=== PATIENT | female | born 1965 ===

== ENCOUNTER 2023-09-28 15:59 | Inpatient (IN) | payer OTHER, SELFPAY ==
[2023-09-28 18:05] VITALS: BMI 29.9
[2023-09-28] MEDS ORDERED: Senokot S 8.6-50 MG TAB PO PRN (19:02)
[2023-09-28] MEDS ORDERED: Guaifenesin DM 100-10/5 ML UDCUP PO PRN (19:02)
[2023-09-28] MEDS ORDERED: Ondansetron PF 4 MG/2 ML Vial IVP PRN (19:02)
[2023-09-28] MEDS ORDERED: Acetaminophen 325 MG TAB PO PRN (19:02)
[2023-09-28] MEDS ORDERED: Dextrose 5% in Water 1,000 ML IV PRN (19:07)
[2023-09-28] MEDS ORDERED: Glucagon 1 MG/ML KIT IM PRN (19:07)
[2023-09-28] MEDS ORDERED: Dextrose 50% Abboject 50 ML SYRINGE SLOW IVP PRN (19:07)
[2023-09-28 19:52] LABS: Actual Bicarbonate (HCO3v) 21.4 mEq/L (22-28); Analyzer IN Cardio CS ER; Base Excess -3.2 mEq/L (-2 - +2); Calcium, Ionized (venous) 1.13 mmol/L (1.16-1.32); Chloride (VBG) 104 mmol/L (98-106); Hematocrit-VBG 46 % (36.0-47.0); Hemoglobin (Hb) 15.7 g/dL (11.7-16.0); Potassium (VBG) 3.41 mmol/L (3.70-5.30); Puncture Site Other Site; RapidComm Collect By lab; Sodium 140 mmol/L (133-146); pH (venous) 7.377 (7.32-7.43)
[2023-09-28 19:59] LABS: INR-International Normal Ratio 1.1; PTT 25.8 sec (22.0-33.0); Prothrombin Time 11.6 sec (9.5-12.1)
[2023-09-28 20:09] LABS: ALT (SGPT) 31 U/L (8-55); AST (SGOT) 26 U/L (5-34); Albumin 3.4 g/dL (3.5-5.0); Alkaline Phosphatase 105 U/L (40-110); Anion Gap 12 mmol/L (10-20); BUN (Urea Nitrogen) 10 mg/dL (9.8-20.1); Bilirubin, Total 0.9 mg/dL (0.2-1.2); Calc. Creatinine Clearance 86 mL/min (70-130); Calcium 9.2 mg/dL (7.8-10.44); Carbon Dioxide 23 mmol/L (22-29); Chloride 107 mmol/L (98-107); Estimated GFR 76; Globulin 3.3 g/dL (2.4-3.5); Glucose 179 mg/dL (70-105); Magnesium 1.6 mg/dL (1.6-2.6); Potassium 3.4 mmol/L (3.5-5.1); Protein, Total 6.7 g/dL (6.0-8.3); Sodium 139 mmol/L (136-145)
[2023-09-28] MEDS: Insulin Lispro 100 UNIT/ML 10 ML VIAL SC PRN (22:20)
[2023-09-28] MEDS: Magnesium 2 GM/50 ML(in water) 2 GM in Premix 1 BAG IVPB SCH (22:25)
[2023-09-28] MEDS: Aspirin 81 mg Enteric Coated Tablet PO SCH (22:26)
[2023-09-28] MEDS: Lactated Ringer's 1,000 ML IV SCH (22:26)
[2023-09-28] MEDS: Thiamine HCl 200 MG/2 ML VIAL SLOW IVP SCH (22:26)
[2023-09-28] MEDS: Potassium Chloride 20 MEQ TAB PO SCH (22:27)
[2023-09-28] MEDS: Famotidine 20 MG TAB PO SCH (22:27)
[2023-09-28] MEDS: Atorvastatin Calcium 40 MG TAB PO SCH (22:27)
[2023-09-28] MEDS: Labetalol HCl 100 MG TAB PO SCH (22:27)
[2023-09-29 05:05] LABS: Anion Gap 16 mmol/L (10-20); BUN (Urea Nitrogen) 10 mg/dL (9.8-20.1); Calc. Creatinine Clearance 85 mL/min (70-130); Calcium 9.1 mg/dL (7.8-10.44); Carbon Dioxide 19 mmol/L (22-29); Cardiac Risk 7.2 (Less than 4.5); Chloride 110 mmol/L (98-107); Cholesterol 152 mg/dl (< 200 Desired); Estimated GFR 75; Glucose 193 mg/dL (70-105); HDL Cholesterol 21 mg/dL (>60 Neg Risk); LDL Cholesterol, Calculated 104 mg/dL; Potassium 4.6 mmol/L (3.5-5.1); Sodium 140 mmol/L (136-145); Triglycerides 133 mg/dL (Less than 150)
[2023-09-29 05:25] LABS: Bilirubin Neg (Negative); Blood, Urine Negative (Negative); Clarity Clear (Clear); Glucose, Urine (Dipstick) 100 mg/dL (Negative); Ketone, Urine Negative (Negative); Leukocyte 100 (Negative); Nitrite Negative (Negative); Protein, Urine (Dipstick) 15 mg/dl (Neg-Trace); Urobilinogen Normal mg/dL (Less than 2)
[2023-09-29 05:31] LABS: Amphetamine Detected (NotDetected); Barbiturates Screen Not Detected (NotDetected); Benzodiazepine Screen Not Detected (NotDetected); Cocaine Metabolite Screen Not Detected (NotDetected); Methadone Not Detected (NotDetected); Methamphetamine Detected (NotDetected); Opiate Screen Not Detected (NotDetected); Oxycodone Screen Not Detected (NotDetected); Phencyclidine (PCP) Not Detected (NotDetected); THC/Cannabinoid Screen Detected (NotDetected); Tricyclic Screen Not Detected (NotDetected)
[2023-09-29 05:43] LABS: Legionella Urinary Ag Negative (Negative); Strep pneumo Urine Ag NEGATIVE (NEGATIVE)
[2023-09-29 05:46] LABS: RBC/HPF None Seen HPF (0-3); WBC/HPF 0-3 HPF (0-3)
[2023-09-29 05:47] LABS: Bacteria/HPF 2+ HPF (None Seen); Squamous Epithelial 0-3 HPF (0-3)
[2023-09-29 05:54] LABS: Influenza A by NAA Not Detected (NotDetected); Influenza B by NAA Not Detected (NotDetected); RSV by NAA Not Detected (NotDetected); SARS-CoV-2 NAA Rapid Test Not Detected (NotDetected)
[2023-09-29] MEDS: cefTRIAXone\\ROCEPHIN 1 GM in Sodium Chloride 0.9% 100 ML IVPB SCH (06:57)
[2023-09-29] MEDS ORDERED: Losartan 50 MG TAB PO SCH (09:00)
[2023-09-29] MEDS ORDERED: Losartan 25 MG TAB PO SCH (09:00)
[2023-09-29] MEDS ORDERED: Amlodipine 5 MG TAB PO SCH (09:00)
[2023-09-29] MEDS: Enoxaparin 40 MG (0.4 mL) SYRINGE SC SCH (09:48)
[2023-09-29] MEDS: Aspirin 81 mg Enteric Coated Tablet PO SCH (09:48)
[2023-09-29] MEDS: metFORMIN 500 MG TAB PO SCH (09:49)
[2023-09-29] MEDS: Thiamine HCl 500 MG, Admixture Fee 1 EACH in Sodium Chloride 0.9% 50 ML IVPB SCH (15:19)
[2023-09-29 15:34] LABS: Hemoglobin A1c 9.7 % (4.0-6.0)
[2023-09-29] MEDS: hydrALAZINE 20 MG/ML VIAL SLOW IVP PRN (21:53)
[2023-09-30] MEDS ORDERED: Electrolyte Replacement Protocol 1 EACH FS SCH (11:45)
[2023-09-30] MEDS: Spironolactone 25 MG TAB PO SCH (12:30)
[2023-09-30] MEDS: Carvedilol 3.125 MG TAB PO SCH (16:51)
[2023-09-30] MEDS: metFORMIN 500 MG TAB PO SCH (16:51)
[2023-10-01 05:41] LABS: Phosphorus 3.7 mg/dL (2.3-4.7)
[2023-10-01 05:42] LABS: Anion Gap 14 mmol/L (10-20); BUN (Urea Nitrogen) 12 mg/dL (9.8-20.1); Calc. Creatinine Clearance 76 mL/min (70-130); Calcium 9.8 mg/dL (7.8-10.44); Carbon Dioxide 23 mmol/L (22-29); Chloride 107 mmol/L (98-107); Estimated GFR 66; Glucose 148 mg/dL (70-105); Magnesium 1.7 mg/dL (1.6-2.6); Potassium 4.5 mmol/L (3.5-5.1); Sodium 139 mmol/L (136-145)
[2023-10-01] MEDS: Spironolactone 25 MG TAB PO SCH (08:59)
[2023-10-01] MEDS: Magnesium 2 GM/50 ML(in water) 2 GM in Premix 1 BAG IVPB SCH (09:00)
[2023-10-01] MEDS: Lorazepam 0.5 MG TAB PO PRN (16:05)
[2023-10-01] MEDS: Cyanocobalamin (Vitamin B-12) 1,000 MCG TAB PO SCH (21:02)
[2023-10-01] MEDS: Multivit, Therapeutic 1 TAB PO SCH (21:02)
[2023-10-01] MEDS: Folic Acid 1 MG TAB PO SCH (21:02)
[2023-10-02 05:57] LABS: Magnesium 1.9 mg/dL (1.6-2.6)
[2023-10-02] MEDS ORDERED: Magnesium 2 GM/50 ML(in water) 2 GM in Premix 1 BAG IVPB SCH (08:15)
[2023-10-02] MEDS: Magnesium 2 GM/50 ML(in water) 2 GM in Premix 1 BAG IVPB SCH (09:27)
[2023-10-02] MEDS: Thiamine HCl 250 MG, Admixture Fee 1 EACH in Sodium Chloride 0.9% 50 ML IVPB SCH (09:29)
[2023-10-02] MEDS: Calcium Carbonate 500 MG ChewTAB PO PRN (16:25)
[2023-10-02] MEDS: Nicotine 14 MG PATCH TD PRN (18:34)
[2023-10-03] MEDS: Lorazepam 0.5 MG TAB PO PRN (11:56)
[2023-10-03] MEDS: Nicotine 21 MG PATCH TD PRN (13:36)
[2023-10-03] MEDS: QUEtiapine 25 MG TAB PO SCH (13:59)
[2023-10-04] MEDS: QUEtiapine 25 MG TAB PO SCH (02:09)
[2023-10-04 04:34] LABS: #Basophils 0.08 10x3/uL (0.0-0.2); #Monocytes 0.86 10x3/uL (0.0-1.1); #Neutrophils 3.83 10x3/uL (1.5-8.4); %Eosinophils 2.5 % (0.0-6.0); %Lymphocytes 37.2 % (18.0-47.0); %Monocytes 10.7 % (0.0-10.0); %Neutrophils 47.9 % (40.0-75.0); Hematocrit 42.8 % (34.9-44.5); Hemoglobin 14.8 g/dL (12.0-15.5); Mean Corpuscular HGB CONC 34.6 g/dL (32.0-36.0); Mean Corpuscular Hemoglobin 30.6 pg (27.0-33.0); Mean Corpuscular Volume 88.6 fL (81.6-98.3); Platelet Count 209 10x3/uL (150-450); RBC Distribution Width 12.9 % (11.5-14.5); Red Blood Cell (RBC) Count 4.83 10x6/uL (3.90-5.03)
[2023-10-04 04:49] LABS: Anion Gap 14 mmol/L (10-20); BUN (Urea Nitrogen) 28 mg/dL (9.8-20.1); Calc. Creatinine Clearance 64 mL/min (70-130); Calcium 9.7 mg/dL (7.8-10.44); Carbon Dioxide 22 mmol/L (22-29); Chloride 106 mmol/L (98-107); Estimated GFR 53; Glucose 119 mg/dL (70-105); Potassium 4.6 mmol/L (3.5-5.1); Sodium 137 mmol/L (136-145)
[2023-10-04] MEDS: Thiamine 100 MG TAB PO SCH (09:14)
[2023-10-04 16:42] VITALS: BP 127/89; TEMP 97.5
[2023-10-07] MEDS ORDERED: Thiamine HCl 200 MG/2 ML VIAL SLOW IVP SCH (09:00)
== END 2023-10-04 19:00 | DRG 64 ==
LOC: CSHTELE 17:59 → UNDOADMIN 17:59 → CSHTELE 18:22
PROVIDERS: ADMIT Family Medicine; ATTEND Internal Medicine
DX: I63.9 Cerebral infarction, unspecified (principal); G92.8 Other toxic encephalopathy; G93.6 Cerebral edema; G93.49 Other encephalopathy; I47.10 Supraventricular tachycardia, unspecified; I16.9 Hypertensive crisis, unspecified; I10 Essential (primary) hypertension; E78.5 Hyperlipidemia, unspecified; E11.9 Type 2 diabetes mellitus without complications; G47.30 Sleep apnea, unspecified; E83.52 Hypercalcemia; E87.6 Hypokalemia; R82.71 Bacteriuria; E83.42 Hypomagnesemia; N30.90 Cystitis, unspecified without hematuria; F17.210 Nicotine dependence, cigarettes, uncomplicated; Z79.84 Long term (current) use of oral hypoglycemic drugs
CPT/HCPCS: 0241U; 36415; 36416; 70551; 71045; 80048; 80053; 80061; 80306; 81001; 82140; 82330; 82805; 83036; 83735; 83880; 84100; 84443; 85025; 85610; 85730; 87086; 87449; 87899; 93306; 93880; J0360; J0696; J1650; J1815; J3411; J3475; J3490; J7120